=== PATIENT | male | born 1995 | race Caucasian/White ===

== ENCOUNTER 2022-10-11 11:01 | Day surgery (SDC) | payer OTHER, BC ==
[2022-10-10 14:55] VITALS: BMI 38.7
[2022-10-11] MEDS ORDERED: Bupivacaine HCl 0.5%/Epinephrine 1:200,000/PF 30 ml Vial ONE (12:25)
[2022-10-11] MEDS ORDERED: Neomycin-Polymyxin 1 ML AMP ONE (12:26)
[2022-10-11] MEDS ORDERED: Fentanyl 250 MCG/5 ML VIAL ONE (12:27)
[2022-10-11] MEDS ORDERED: Sodium Chloride 0.9% 100 ML ONE (12:38)
[2022-10-11] MEDS ORDERED: CEFAZOLIN 2 GM VIAL ONE (12:38)
[2022-10-11] MEDS ORDERED: Lidocaine 1% PF 5 ML VIAL ONE (12:51)
[2022-10-11] MEDS ORDERED: PROPOFOL 200 MG/20 ML VIAL ONE (12:51)
[2022-10-11] MEDS ORDERED: Ketorolac Tromethamine 30 MG/ML VIAL ONE (12:51)
[2022-10-11] MEDS ORDERED: Dexamethasone 20 MG/5 ML VIAL ONE (12:51)
[2022-10-11] MEDS ORDERED: Ondansetron PF 4 MG/2 ML Vial ONE (12:51)
[2022-10-11] MEDS ORDERED: Midazolam HCl 2 mg/2 ml Vial ONE (13:07)
[2022-10-11] MEDS ORDERED: HYDROcodone/Acetaminophen 5/325 mg Tablet ONE (16:13)
== END 2022-10-11 16:56 | disposition home or self-care (01) ==
LOC: SDC 11:01
PROVIDERS: ATTEND Orthopaedic Surgery
PROC: 0PSH04Z Reposition Right Radius with Internal Fixation Device, Open Approach (ICD-10-PCS; principal; 2022-10-11)
PROC: 0PSK04Z Reposition Right Ulna with Internal Fixation Device, Open Approach (ICD-10-PCS; principal; 2022-10-11)
DX: S52.301A Unspecified fracture of shaft of right radius, initial encounter for closed fracture (principal); S52.201A Unspecified fracture of shaft of right ulna, initial encounter for closed fracture; K58.9 Irritable bowel syndrome, unspecified; E66.9 Obesity, unspecified; Z68.38 Body mass index [BMI] 38.0-38.9, adult; Z79.899 Other long term (current) drug therapy; V09.9XXA Pedestrian injured in unspecified transport accident, initial encounter
CPT/HCPCS: C1713; C1874; J1100; J1885; J2250; J2405; J2704; J3010; J3490